=== PATIENT | male | born 1995 | race Caucasian/White ===

== ENCOUNTER 2017-08-31 18:33 | Emergency (ER) | payer SELFPAY ==
[~2017-08-31] VITALS: Ht 182.9 cm; Wt 81.0 kg
[2017-08-31] MEDS ORDERED: CEFTRIAXONE SODIUM 250 MG/VIAL IM ONE (23:15)
[2017-08-31] MEDS ORDERED: DOXYCYCLINE HYCLATE 100MG CAPSULE PO ONE (23:30)
[2017-08-31 23:48] LABS: CLARITY URINE CLEAR (CLEAR); COLOR URINE YELLOW (YELLOW); KETONES URINE NEGATIVE (NEGATIVE); LEUKOCYTE ESTERASE URINE NEGATIVE (NEGATIVE); NITRITE URINE NEGATIVE (NEGATIVE); OCCULT BLOOD URINE NEGATIVE (NEGATIVE); PH URINE 5.5 (4.5-8.0); PROTEIN URINE NEGATIVE (NEGATIVE); SPECIFIC GRAVITY URINE 1.021 (1.005-1.030); UROBILINOGEN URINE 0.2 E.U./dL (0.2-1.0)
[2017-09-01] MEDS ORDERED: AZITHROMYCIN 500 MG TABLET PO ONE (00:15)
[2017-09-01 01:29] VITALS: BP 110/57
== END 2017-09-01 01:36 | disposition home or self-care (01) ==
LOC: ER 19:46
DX: N45.1 Epididymitis (principal); J45.909 Unspecified asthma, uncomplicated; Z88.0 Allergy status to penicillin
CPT/HCPCS: 76870; 81003; 93976; 99285